=== PATIENT | female | born 1985 | race Caucasian/White ===

== ENCOUNTER → 2023-06-13 23:00 | Outpatient (CLI) | payer BC, SELFPAY ==
[2023-06-13 19:08] LABS: Alanine Aminotransferase 24 U/L (12-78); Albumin Level 4.4 g/dl (3.5-5.0); Albumin/Globulin Ratio 1.3 (1.1-1.8); Alkaline Phosphatase 145 U/L (38-126); Anion Gap 13.7 mEq/L (5-15); Aspartate Amino Transferase 23 U/L (14-36); Bilirubin,Total 0.6 mg/dl (0.2-1.3); Blood Urea Nitrogen 11 mg/dl (7-17); Calcium 9.5 mg/dl (8.4-10.2); Carbon Dioxide 26 mmol/L (22.0-30.0); Chloride 102 mmol/L (98-107); Chol/HDL Ratio 3.6 (1-3.5); Cholesterol 210 mg/dl (140-200); Estimated Glomerular Filt Rate 181 ml/min (>60); GFR (African American) 219 ML/MIN (>60); Globulin 3.4 g/dL (1.3-3.2); Glucose 163 mg/dl (74-100); HDL Cholesterol 58 mg/dl (40-60); Potassium 4.7 mmoL/L (3.5-5.1); Sodium 137 mmol/L (136-145); Total Protein,Serum 7.8 g/dl (6.3-8.2); Triglycerides 233 mg/dl (30-150); VLDL Cholesterol 47 mg/dL (0-40)
[2023-06-13 19:19] LABS: Direct LDL Cholesterol 108.93 mg/dL (100-129)
[2023-06-13 19:36] LABS: Thyroid Stimulating Hormone 1.39 uIU/mL (0.465-4.68)
== END ==
PROVIDERS: PCP Nurse Practitioner; Visit Provider Nurse Practitioner
DX: Z13.1 Encounter for screening for diabetes mellitus (principal); Z13.220 Encounter for screening for lipoid disorders; Z13.29 Encounter for screening for other suspected endocrine disorder
CPT/HCPCS: 80053; 80061; 83036; 84443

== ENCOUNTER → 2023-07-11 23:00 | Outpatient (CLI) | payer BC, SELFPAY | PROVIDERS: PCP Family Medicine; Visit Provider Family Medicine | DX: R39.9 Unspecified symptoms and signs involving the genitourinary system (principal); B96.29 Other Escherichia coli [E. coli] as the cause of diseases classified elsewhere | CPT/HCPCS: 87086; 87088; 87186 ==

== ENCOUNTER → 2023-08-15 10:00 | Outpatient (CLI) | payer BC, SELFPAY ==
[2023-08-15 18:30] LABS: Basophils # 0.1 K/mm3 (0-0.2); Basophils % 0.6 % (0.1-2.0); Eosinophils # 0.1 K/mm3 (0.0-0.4); Eosinophils % 1.4 % (0.1-12.0); Hemoglobin 14.1 g/dL (12.2-16.2); Lymphocytes # 2.2 K/mm3 (0.7-4.5); Lymphocytes % 28.2 % (10-50); Mean Corpuscular HGB Conc 32.7 g/dL (31.8-35.4); Mean Corpuscular Hemoglobin 30.3 pg (27.0-31.2); Mean Corpuscular Volume 92.8 fl (81-99); Mean Platelet Volume 8.5 fl (7.4-10.4); Monocytes # 0.4 K/mm3 (0.1-1.0); Monocytes % 4.5 % (1.7-9.3); Neutrophils # 5.1 K/mm3 (1.8-7.8); Neutrophils % 65.3 % (37.0-80.0); Platelet Count 408 K/mm3 (142-424); Red Blood Count 4.63 M/mm3 (4.20-5.40); Red Cell Distribution Width 13.2 % (11.5-17.5); White Blood Count 7.8 K/mm3 (4.8-10.8)
[2023-08-15 18:38] LABS: Alanine Aminotransferase 18 U/L (12-78); Albumin Level 4.7 g/dl (3.5-5.0); Albumin/Globulin Ratio 1.4 (1.1-1.8); Alkaline Phosphatase 115 U/L (38-126); Anion Gap 16.4 mEq/L (5-15); Aspartate Amino Transferase 24 U/L (14-36); Bilirubin,Total 0.5 mg/dl (0.2-1.3); Blood Urea Nitrogen 15 mg/dl (7-17); Calcium 9.5 mg/dl (8.4-10.2); Carbon Dioxide 26 mmol/L (22.0-30.0); Chloride 102 mmol/L (98-107); Estimated Glomerular Filt Rate 140 ml/min (>60); GFR (African American) 169 ML/MIN (>60); Globulin 3.3 g/dL (1.3-3.2); Glucose 136 mg/dl (74-100); Potassium 4.4 mmoL/L (3.5-5.1); Sodium 140 mmol/L (136-145)
[2023-08-15 18:50] LABS: Hemoglobin A1C 7.3 % (4.0-6.0)
[2023-08-15 19:09] LABS: Creatinine,Urine Random 291 mg/dL (Not Estab.)
[2023-08-15 19:36] LABS: Microalbumin/Creatinine Ratio 74.6
== END ==
PROVIDERS: PCP Nurse Practitioner; Visit Provider Nurse Practitioner
DX: E11.9 Type 2 diabetes mellitus without complications (principal); Z79.84 Long term (current) use of oral hypoglycemic drugs
CPT/HCPCS: 80053; 82043; 82570; 83036; 85025

== ENCOUNTER → 2023-09-12 11:48 | Outpatient (CLI) | payer BC, SELFPAY ==
[2023-09-12 18:59] LABS: Chloride 106 mmol/L (98-107); Sodium 138 mmol/L (136-145)
[2023-09-12 19:00] LABS: Potassium 4.4 mmoL/L (3.5-5.1)
[2023-09-12 19:02] LABS: Blood Urea Nitrogen 9 mg/dl (7-17); Estimated Glomerular Filt Rate 181 ml/min (>60); GFR (African American) 219 ML/MIN (>60)
[2023-09-12 19:03] LABS: Anion Gap 11.4 mEq/L (5-15); Calcium 8.6 mg/dl (8.4-10.2); Carbon Dioxide 25 mmol/L (22.0-30.0); Glucose 213 mg/dl (74-100)
== END ==
PROVIDERS: PCP Nurse Practitioner; Visit Provider Nurse Practitioner
DX: E11.9 Type 2 diabetes mellitus without complications (principal); Z79.84 Long term (current) use of oral hypoglycemic drugs
CPT/HCPCS: 80048

== ENCOUNTER → 2023-10-24 12:00 | Outpatient (CLI) | payer BC, SELFPAY ==
[2023-10-24 19:12] LABS: Chloride 103 mmol/L (98-107)
[2023-10-24 19:13] LABS: Potassium 4.4 mmoL/L (3.5-5.1); Sodium 138 mmol/L (136-145)
[2023-10-24 19:15] LABS: Blood Urea Nitrogen 13 mg/dl (7-17); Estimated Glomerular Filt Rate 180 ml/min (>60); GFR (African American) 217 ML/MIN (>60)
[2023-10-24 19:16] LABS: Anion Gap 14.4 mEq/L (5-15); Calcium 8.9 mg/dl (8.4-10.2); Carbon Dioxide 25 mmol/L (22.0-30.0); Glucose 199 mg/dl (74-100)
[2023-10-24 19:22] LABS: Hemoglobin A1C 7.6 % (4.0-6.0)
== END ==
PROVIDERS: PCP Nurse Practitioner; Visit Provider Nurse Practitioner
DX: E11.9 Type 2 diabetes mellitus without complications (principal); Z79.84 Long term (current) use of oral hypoglycemic drugs
CPT/HCPCS: 80048; 83036

== ENCOUNTER 2023-12-27 22:07 | Outpatient (CLI) | payer BC, SELFPAY ==
[2023-12-27 18:32] LABS: Creatinine,Urine Random 79 mg/dL (Not Estab.)
[2023-12-27 18:36] LABS: Microalbumin/Creatinine Ratio 50.1
[2023-12-27 19:53] LABS: Hemoglobin A1C 7.9 % (4.0-6.0)
[2023-12-27 19:56] LABS: Chloride 106 mmol/L (98-107); Potassium 4.8 mmoL/L (3.5-5.1); Sodium 138 mmol/L (136-145)
[2023-12-27 19:59] LABS: Alanine Aminotransferase 29 U/L (12-78); Albumin Level 4.5 g/dl (3.5-5.0); Albumin/Globulin Ratio 1.3 (1.1-1.8); Alkaline Phosphatase 158 U/L (38-126); Anion Gap 8.8 mEq/L (5-15); Aspartate Amino Transferase 32 U/L (14-36); Bilirubin,Total 0.5 mg/dl (0.2-1.3); Blood Urea Nitrogen 9 mg/dl (7-17); Calcium 9.2 mg/dl (8.4-10.2); Carbon Dioxide 28 mmol/L (22.0-30.0); Cholesterol 198 mg/dl (140-200); Estimated Glomerular Filt Rate 180 ml/min (>60); GFR (African American) 217 ML/MIN (>60); Globulin 3.4 g/dL (1.3-3.2); Glucose 169 mg/dl (74-100); Total Protein,Serum 7.9 g/dl (6.3-8.2); Triglycerides 123 mg/dl (30-150); VLDL Cholesterol 25 mg/dL (0-40)
[2023-12-27 20:00] LABS: Chol/HDL Ratio 4.7 (1-3.5); HDL Cholesterol 42 mg/dl (40-60)
[2023-12-27 20:10] LABS: Direct LDL Cholesterol 122.91 mg/dL (100-129)
== END 2023-12-27 23:59 ==
LOC: LAB.DROPOF 22:08
PROVIDERS: PCP Nurse Practitioner; Visit Provider Nurse Practitioner
DX: E11.9 Type 2 diabetes mellitus without complications (principal); Z79.84 Long term (current) use of oral hypoglycemic drugs
CPT/HCPCS: 80053; 80061; 82043; 82570; 83036

== ENCOUNTER 2024-03-27 11:42 | Outpatient (CLI) | payer BC, SELFPAY ==
[2024-03-27 19:53] LABS: Alanine Aminotransferase 35 U/L (12-78); Albumin Level 4.5 g/dl (3.5-5.0); Albumin/Globulin Ratio 1.5 (1.1-1.8); Alkaline Phosphatase 153 U/L (38-126); Anion Gap 14.4 mEq/L (5-15); Aspartate Amino Transferase 31 U/L (14-36); Bilirubin,Total 0.6 mg/dl (0.2-1.3); Blood Urea Nitrogen 13 mg/dl (7-17); Calcium 9.4 mg/dl (8.4-10.2); Carbon Dioxide 26 mmol/L (22.0-30.0); Chloride 99 mmol/L (98-107); Chol/HDL Ratio 4.1 (1-3.5); Cholesterol 243 mg/dl (140-200); Estimated Glomerular Filt Rate 180 ml/min (>60); GFR (African American) 217 ML/MIN (>60); Globulin 3.1 g/dL (1.3-3.2); Glucose 250 mg/dl (74-100); HDL Cholesterol 60 mg/dl (40-60); Potassium 4.4 mmoL/L (3.5-5.1); Sodium 135 mmol/L (136-145); Total Protein,Serum 7.6 g/dl (6.3-8.2); Triglycerides 201 mg/dl (30-150); VLDL Cholesterol 40 mg/dL (0-40)
[2024-03-27 20:01] LABS: Hemoglobin A1C 8.8 % (4.0-6.0)
[2024-03-27 20:04] LABS: Direct LDL Cholesterol 147.16 mg/dL (100-129)
== END 2024-03-27 23:59 | disposition home or self-care (01) ==
LOC: LAB.DROPOF 03-28 11:42
PROVIDERS: PCP Nurse Practitioner; Visit Provider Nurse Practitioner
DX: E11.9 Type 2 diabetes mellitus without complications (principal); E78.5 Hyperlipidemia, unspecified; Z79.84 Long term (current) use of oral hypoglycemic drugs
CPT/HCPCS: 80053; 80061; 83036